=== PATIENT | male | born 1955 | race Caucasian/White ===

== ENCOUNTER 2020-03-01 20:45 | Emergency (ER) | payer OTHER ==
[2020-03-01] MEDS ORDERED: TETANUS,DIPHTHERIA,PERTUSSIS 1 EA SYG IM ONE (21:01)
[2020-03-01 21:03] VITALS: O2SAT 95
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
[2020-03-01 21:29] VITALS: BP 117/78; TEMP 97.8
== END 2020-03-01 21:30 ==
LOC: ER 20:45
DX: S00.81XA Abrasion of other part of head, initial encounter (principal); S90.812A Abrasion, left foot, initial encounter; S60.511A Abrasion of right hand, initial encounter; S00.93XA Contusion of unspecified part of head, initial encounter; Y35.81 Legal intervention involving manhandling; Y92.9 Unspecified place or not applicable